=== PATIENT | male | born 1950 | race Caucasian/White ===

== ENCOUNTER 2017-05-11 11:40 | Emergency (ER) | payer BC ==
[2017-05-11 12:42] LABS: BASO % 0.2 % (0-6); EOS % 0.8 % (0-6); GRAN % 76.6 % (47-80); HEMATOCRIT 43.6 % (42.0-52.0); HEMOGLOBIN 15.3 gm/dl (14.0-18.0); LYMPH % 11.1 % (16-45); MEAN CELL VOLUME 92.4 fl (81-97); MEAN CORPUSCULAR HEMOGLOBIN 32.4 pg (27-33); MEAN CORPUSCULAR HGB CONC 35.1 g/dl (32-36); MEAN PLATELET VOLUME 9.6 fl (7.4-10.4); MONO % 11.3 % (0-9); PLATELET COUNT 177 K/uL (130-400); RED BLOOD COUNT 4.72 M/uL (4.40-5.70); RED CELL DISTRIBUTION WIDTH 14.1 % (11.5-14.5); URINE APPEARANCE CLEAR; URINE BILIRUBIN NEGATIVE (NEGATIVE); URINE BLOOD NEGATIVE (NEGATIVE); URINE COLOR YELLOW; URINE GLUCOSE (UA) NEGATIVE (NEGATIVE); URINE KETONE NEGATIVE (NEGATIVE); URINE LEUKOCYTE ESTERASE NEGATIVE (NEGATIVE); URINE NITRITE NEGATIVE (NEGATIVE); URINE PROTEIN NEGATIVE (NEGATIVE); URINE UROBILINOGEN 0.2 E.U./dL (0.20 - 1.00); WHITE BLOOD COUNT W/O DIFF 8.3 K/uL (4.2-12.2)
[2017-05-11 12:54] LABS: BLOOD UREA NITROGEN 13 mg/dL (8-23); CREATININE 0.7 mg/dL (0.7-1.2); EST GLOMERULAR FILTRATION RATE > 60 mL/min
[2017-05-11 12:57] LABS: GLUCOSE,RANDOM 128 mg/dL (74-109)
--- NOTE | 2017-05-11 14:29 | CT SCAN REPORT ---
EXAM: CT SCAN ABDOMEN/PELVIS W CONTRAST HISTORY: FALL. HEMATOMA IN LEFT FLANK REGION. TECHNIQUE: Contrast-enhanced helical CT examination of the abdomen and pelvis is performed including delayed images through the kidneys with 94 mL of Omnipaque-300 utilized. COMPARISON: None. FINDINGS: There is minor dependent atelectasis in each lung base. Minor linear scarring vs. atelectasis also noted within the anterolateral lung bases. No pleural or pericardial effusion is seen. A single-lead transvenous cardiac stimulator in place with the tip in the right ventricle. The liver, spleen, pancreas, and adrenal glands are normal in appearance. The left kidney is unremarkable. There is a small hypodense mass arising from the lateral upper pole of the right kidney having fluid density measuring 16 mm in diameter. This is consistent with a simple cyst. The right kidney is otherwise normal in appearance. The gallbladder is unremarkable. No biliary ductal dilatation is seen. No intraabdominal nor retroperitoneal lymphadenopathy. There is diffuse atherosclerosis. There is mild ectasia of the mid to distal infrarenal abdominal aorta having a somewhat bilobed appearance. This measures 2.6 cm in maximum diameter. No pelvic mass, lymphadenopathy, or free pelvic fluid is seen. There is mild ectasia of the common iliac arteries with the right common iliac artery measuring 15 mm in diameter and the left measuring 16 mm. No intrinsic urinary bladder abnormality is seen. No gross bowel dilatation nor bowel wall thickening. No free peritoneal air. The ribs of the last rib-bearing vertebra are rudimentary. There are fractures of the left transverse processes of what are likely L1 and L2. No other osseous evidence of acute fracture. There are degenerative changes scattered throughout the visualized spine. Moderate subcutaneous fat stranding is noted in the left posterior flank. There is a more confluent area of opacity centrally in this region measuring 2.8 x 2.3 cm suggesting a small hematoma. IMPRESSION: 1. NO CT EVIDENCE OF ACUTE VISCERAL INJURY. 2. SUBCUTANEOUS FAT STRANDING THROUGHOUT THE LEFT POSTERIOR FLANK WITH SMALL MORE CONFLUENT HEMATOMA FORMATION PRESENT. THERE IS ASSOCIATED FRACTURE OF THE LEFT TRANSVERSE PROCESSES OF WHAT ARE LIKELY L1 AND L2. NO OTHER ACUTE OSSEOUS ABNORMALITY. 3. SMALL CYST IN THE UPPER POLE OF THE RIGHT KIDNEY. NOT MENTIONED ABOVE IS A TOO SMALL TO CHARACTERIZE HYPODENSE LESION IN THE UPPER POLE OF THE LEFT KIDNEY. THIS IS NONSPECIFIC BUT LIKELY A CYST. 4. MILD ECTASIA OF THE INFRARENAL ABDOMINAL AORTA MEASURING 2.6 CM IN MAXIMUM DIAMETER. MILD ECTASIA OF THE COMMON ILIAC ARTERIES. JOB NUMBER: [id number] MTDD
--- NOTE | 2017-05-11 14:55 | Emergency Department Record ---
History of Present Illness - General Chief Complaint: Fall Injury Stated Complaint: FALL/BACK PAIN Time Seen by Provider: 05/11/17 12:05 Source: Patient Mode of Arrival: Ambulatory Limitations: No limitations - History of Present Illness Initial Comments: pt fell out of loft bed landing on his back on a bookshelf. he is on a blood thinner. he has bruising over his left flank Onset/Timin -: Hour(s) Fall From: Out of bed Fall Witnessed: No Place Fall Occurred: Other Loss of Consciousness: None Prolonged Down Time?: No Symptoms Prior to Fall: None Location: Back Severity: Moderate Severity scale (1-10): 7 Quality: Aching Associated Symptoms: Denies - Related Data Previous Rx's Medication Instructions Recorded Hydrocodone/Acetaminophen [[place] 1 each PO QID #20 tablet 05/11/17 5-325 Tablet] Allergies Allergy/AdvReac Type Severity Reaction Status Date / Time No Known Drug Allergies Allergy Verified 05/11/17 11:58 Travel Screening - Travel/Exposure Within Last 30 Days Have you traveled within the last 30 days?: No - Travel/Exposure Within Last Year Have you traveled outside the [place] in the last year?: No - Additonal Travel Details Have you been exposed to anyone with a communicable illness?: No - Travel Symptoms Symptom Screening: None Review of Systems Reviewed: No additional complaints except as noted below Constitutional: Reports: As per HPI. Denies: Chills, Fever, Malaise, Night sweats, Weakness, Weight change Eyes: Reports: As per HPI. Denies: Eye discharge, Eye pain, Photophobia, Vision change ENT: Reports: As per HPI. Denies: Congestion, Dental pain, Ear pain, Epistaxis , Hearing loss, Throat pain Respiratory: Reports: As per HPI. Denies: Cough, Dyspnea, Hemoptysis, Stridor, Wheezes Cardiovascular: Reports: As per HPI. Denies: Arrhythmia, Chest pain, Dyspnea on exertion, Edema, Murmurs, Orthopnea, Palpitations, Paroxysmal nocturnal dyspnea, Rheumatic Fever, Syncope Endocrine: Reports: As per HPI. Denies: Fatigue, Heat or cold intolerance, Polydipsia, Polyuria Gastrointestinal: Reports: As per HPI. Denies: Abdominal pain, Constipation, Diarrhea, Hematemesis, Hematochezia, Melena, Nausea, Vomiting Genitourinary: Reports: As per HPI. Denies: Dysuria, Frequency, Hematuria, Incontinence, Retention, Testicular pain, Testicular mass, Urgency Musculoskeletal: Reports: As per HPI. Denies: Arthralgia, Back pain, Gout, Joint swelling, Myalgia, Neck pain Skin: Reports: As per HPI. Denies: Bruising, Change in color, Change in hair/ nails, Lesions, Pruritus, Rash Neurological: Reports: As per HPI. Denies: Abnormal gait, Confusion, Headache, Numbness, Paresthesias, Seizure, Tingling, Tremors, Vertigo, Weakness Psychiatric: Reports: As per HPI. Denies: Anxiety, Auditory hallucinations, Depression, Homicidal thoughts, Suicidal thoughts, Visual hallucinations Hematological/Lymphatic: Reports: As per HPI. Denies: Anemia, Blood Clots, Easy bleeding, Easy bruising, Swollen glands Past Medical History - SOCIAL HISTORY Smoking Status: Former smoker Alcohol Use: Occasional Drug Use: None - RESPIRATORY Hx Respiratory Disorders: No - CARDIOVASCULAR Hx Cardio Disorders: Yes Hx Cardiac Cath: Yes Hx Heart Attack: Yes Hx Hypertension: Yes Hx Pacemaker/Defib: Yes Comment:: high cholesterol - NEURO Hx Neuro Disorders: No - GI Hx GI Disorders: Yes Hx Reflux: Yes - Hx Genitourinary Disorders: No - ENDOCRINE Hx Endocrine Disorders: No - MUSCULOSKELETAL Hx Musculoskeletal Disorders: No - PSYCH Hx Psych Problems: No - HEMATOLOGY/ONCOLOGY Hx Hematology/Oncology Disorders: No Family Medical History Any Significant Family History?: No Physical Exam - General General Appearance: Alert, Oriented x3, Cooperative, Mild distress - Head Head exam: Normal inspection - Eye Eye exam: Normal appearance, PERRL, EOMI Pupils: Normal accommodation - ENT ENT exam: Normal exam, Mucous membranes moist, Normal external ear exam, Normal orophraynx Ear exam: Normal external inspection. negative: External canal tenderness Nasal Exam: Normal inspection. negative: Discharge, Sinus tenderness Mouth exam: Normal external inspection, Tongue normal Teeth exam: Normal inspection. negative: Dental caries Throat exam: Normal inspection. negative: Tonsillar erythema, Tonsillar exudate - Neck Neck exam: Normal inspection, Full ROM. negative: Tenderness - Respiratory Respiratory exam: Normal lung sounds bilaterally. negative: Respiratory distress - Cardiovascular Cardiovascular Exam: Regular rate, Normal rhythm, Normal heart sounds - GI/Abdominal GI/Abdominal exam: Soft, Normal bowel sounds. negative: Tenderness - Rectal Rectal exam: Deferred - exam: Deferred - Extremities Extremities exam: Normal inspection, Full ROM, Normal capillary refill. negative: Tenderness Image of Full Body: 1 - large hematoma - Back Back exam: Reports: CVA tenderness (L), Full ROM, Muscle spasm, Tenderness, Vertebral tenderness, Other (large hematoma over l flank). Denies: Rash noted - Neurological Neurological exam: Alert, CN II-XII intact, Normal gait, Oriented X3 - Psychiatric Psychiatric exam: Normal affect, Normal mood - Skin Skin exam: Dry, Intact, Normal color, Warm Course Vital Signs 05/11/17 12:02 Temperature 97.6 F Pulse Rate 82 Respiratory 18 Rate Blood Pressure 131/85 Pulse Ox 97 Medical Decision Making - Lab Data Result diagrams: 05/11/17 12:35 05/11/17 12:35 Lab Results 05/11/17 05/11/17 05/11/17 Range/Units 12:35 12:35 12:35 WBC 8.3 (4.2-12.2) K/uL RBC 4.72 (4.40-5.70) M/uL Hgb 15.3 (14.0-18.0) gm/dl Hct 43.6 (42.0-52.0) % MCV 92.4 (81-97) fl MCH 32.4 (27-33) pg MCHC 35.1 (32-36) g/dl RDW 14.1 (11.5-14.5) % Plt Count 177 (130-400) K/uL MPV 9.6 (7.4-10.4) fl Gran % 76.6 (47-80) % Lymphocytes % 11.1 L (16-45) % Monocytes % 11.3 H (0-9) % Eosinophils % 0.8 (0-6) % Basophils % 0.2 (0-6) % Sodium 140 (136-145) mmol/L Potassium 3.9 (3.4-4.5) mmol/L Chloride 102 (98-107) mmol/L Carbon Dioxide 25.0 (22-29) mmol/L Anion Gap 13.0 (7-16) BUN 13 (8-23) mg/dL Creatinine 0.7 (0.7-1.2) mg/dL Estimated GFR > 60 mL/min Random Glucose 128 H (74-109) mg/dL Calcium 9.4 (8.8-10.2) mg/dL Urine Color Yellow Urine Appearance Clear Urine pH 5.5 (5.0-8.0) Ur Specific [place] >= 1.030 (1.002-1.030) Urine Protein Negative (NEGATIVE) Urine Glucose (UA) Negative (NEGATIVE) Urine Ketones Negative (NEGATIVE) Urine Blood Negative (NEGATIVE) Urine Nitrite Negative (NEGATIVE) Urine Bilirubin Negative (NEGATIVE) Urine Urobilinogen 0.2 (0.20 - 1.00) E.U./dL Ur Leukocyte Esterase Negative (NEGATIVE) Disposition Disposition: Discharge Clinical Impression: Multiple transverse process fractures Hematoma of left flank Qualifiers: Encounter type: initial encounter Qualified Code(s): S30.1XXA - Contusion of abdominal wall, initial encounter Disposition: Home, Self-Care Condition: (1) Good Instructions: Thoracolumbar Fracture (ED) Additional Instructions: follow up with dr cox office today. return sooner if worse. ice to back Prescriptions: Hydrocodone/Acetaminophen [[place] 5-325 Tablet] 1 each PO QID #20 tablet Forms: Patient Portal Access, Return to Work/School Quality - Quality Measures Quality Measures: N/A - Blood Pressure Screening Does Patient Have Any of the Following: No Blood Pressure Classification: Pre-Hypertensive BP Reading Systolic Measurement: 131 Diastolic Measurement: 85 Screening for High Blood Pressure: < Pre-Hypertensive BP, F/U Documented > [ [id number]] Pre-Hypertensive Follow-up Interventions: Follow-up with rescreen every year.
== END 2017-05-11 15:07 | disposition home or self-care (01) ==
LOC: ER 11:40
DX: S32.019A Unspecified fracture of first lumbar vertebra, initial encounter for closed fracture (principal); S32.029A Unspecified fracture of second lumbar vertebra, initial encounter for closed fracture; S30.1XXA Contusion of abdominal wall, initial encounter; W06.XXXA Fall from bed, initial encounter; I10 Essential (primary) hypertension; Z79.82 Long term (current) use of aspirin; Z87.891 Personal history of nicotine dependence
CPT/HCPCS: 74177; 80048; 81003; 85025; 99283; 99284